=== PATIENT | male | born 1960 | race Caucasian/White ===

== ENCOUNTER 2017-11-11 07:43 | Day surgery (SDC) | payer OTHER ==
[~2017-11-11] VITALS: Ht 195.6 cm; Wt 96.2 kg
[2017-11-11] VITALS (17 sets, daily range): BP systolic 120–162; BP diastolic 36–104
[2017-11-11] MEDS ORDERED: LIDOcaine 1% (10mg/ml) 2ml vial ONE (08:21)
[2017-11-11] MEDS ORDERED: normal saline 1000ml 1,000 ML IV PRN (08:40)
[2017-11-11] MEDS ORDERED: midazolam 2 mg/2 ml injection IV PRN (09:40)
[2017-11-11] MEDS ORDERED: fentaNYL/PF 50MCG/1 ML 2ML syringe IV PRN (09:40)
[2017-11-11] MEDS ORDERED: LIDOcaine 1%/PF (10mg/ml) 5ml vial SQ ONE (09:40)
[2017-11-11] MEDS ORDERED: NO HOME MEDS (09:48)
[2017-11-11] MEDS ORDERED: midazolam 2 mg/2 ml injection ONE (10:08)
[2017-11-11] MEDS ORDERED: fentaNYL/PF 50MCG/1 ML 2ML syringe ONE (10:08)
[2017-11-11] MEDS ORDERED: HYDROcodone/acetaminophen 5mg/325mg tablet PO PRN ×2 (10:35)
== END 2017-11-11 13:00 | disposition home or self-care (01) ==
LOC: SSTAY O 07:43
PROVIDERS: ATTEND Radiology Diagnostic Radiology
DX: D14.31 Benign neoplasm of right bronchus and lung (principal); F17.210 Nicotine dependence, cigarettes, uncomplicated; Z72.89 Other problems related to lifestyle; Z98.890 Other specified postprocedural states
CPT/HCPCS: 32405; 71045; 77012; J2250; J3010; J3490; J7030; 85025; 99152; 99153